=== PATIENT | male | born 1975 ===

== ENCOUNTER 2018-02-11 14:52 | Emergency (ER) | payer SELFPAY ==
[2018-02-11 15:06] VITALS: RESP 18
--- NOTE | 2018-02-11 15:17 | C.PDOC ---
History Of Present Illness 42 year old male with PMHx of DM2 (not treated) presents with L knee redness, pain, and swelling that has been worsening for the past 4 days. Reports swelling worsened to include the entire lower leg 3 days ago. Also complains of fever and shaking chills. Has been treating fevers with tylenol. States he noticed a pimple to inferior knee approximately 4 days ago. Denies trauma, shortness of breath, chest pain, cough, abdominal pain, nausea, vomiting, lightheadedness, dizziness. PMHx: DM2, L eye vision loss PSHx: L eye surgery Meds: States he took pills for DM 11 years ago, but never followed up for refill. Allergies: NKDA Social: occasional alcohol, denies smoking and drugs Family Hx: Uncle with DM PMD: none <Briana Terrell - Last Filed: 02/11/18 22:06> <Briana Russell J - Last Filed: 02/11/18 17:38> <Briana Terrell P - Last Filed: 02/11/18 22:06> Time Seen by Provider: 02/11/18 15:14 Chief Complaint (Nursing): Lower Extremity Problem/Injury Past Medical History Vital Signs: Last Vital Signs Temp 99.6 F 02/11/18 15:03 Pulse 72 02/11/18 15:03 Resp 18 02/11/18 15:03 BP 133/83 02/11/18 15:03 Pulse Ox 100 02/11/18 15:03 - Social History Hx Alcohol Use: Yes Hx Substance Use: No - Immunization History Hx Tetanus Toxoid Vaccination: No Hx Influenza Vaccination: No Hx Pneumococcal Vaccination: Yes <Briana Russell J - Last Filed: 02/11/18 17:38> Vital Signs: Last Vital Signs Temp 99.6 F 02/11/18 15:03 Pulse 72 02/11/18 15:03 Resp 18 02/11/18 15:03 BP 133/83 02/11/18 15:03 Pulse Ox 100 02/11/18 15:24 - Medical History PMH: Diabetes Other Surgeries: L eye surgery Family History: States: Diabetes - Social History Hx Tobacco Use: No <Briana Terrell - Last Filed: 02/11/18 22:06> Review Of Systems Constitutional: Positive for: Fever, Chills. Negative for: Sweats Cardiovascular: Negative for: Chest Pain, Palpitations Respiratory: Negative for: Cough, Shortness of Breath Gastrointestinal: Negative for: Nausea, Vomiting, Abdominal Pain Genitourinary: Negative for: Dysuria, Frequency Neurological: Negative for: Weakness, Numbness, Dizziness <Briana Terrell P - Last Filed: 02/11/18 22:06> Physical Exam - Physical Exam Appears: Non-toxic, No Acute Distress Skin: Other (erythema, warmth to L knee; non-pitting edema extending from L knee to foot. Otherwise normal) Head: Atraumatic, Normacephalic Eye(s): bilateral: Normal Inspection, EOMI Nose: Normal Neck: Normal, Normal ROM Cardiovascular: Rhythm Regular, No Rhythm Irregular, No Friction Rub, No Murmur, No JVD Respiratory: Normal Breath Sounds, No Decreased Breath Sounds, No Rales, No Rhonchi, No Wheezing Gastrointestinal/Abdominal: Bowel Sounds, Soft, No Tenderness, Other (No inguinal lymphadenopathy or tenderness) Extremity: Normal ROM, No Tenderness, No Calf Tenderness, Capillary Refill (less than 2 seconds), Other (erythema, warmth, and non-pitting edema to L patella, with some spread medially. Edema extends to L foot. Capillary refill intact. Pedal pulses equal bilaterally.) Pulses: Left Dorsalis Pedis: Normal, Right Dorsalis Pedis: Normal Neurological/Psych: Oriented x3, Normal Cranial Nerves, Normal Motor <Briana Terrell P - Last Filed: 02/11/18 22:06> ED Course And Treatment - Laboratory Results Result Diagrams: 02/11/18 16:07 02/11/18 16:07 O2 Sat by Pulse Oximetry: 100 <Briana Russell J - Last Filed: 02/11/18 17:38> - Laboratory Results Result Diagrams: 02/11/18 16:07 02/11/18 16:07 <Briana Terrell P - Last Filed: 02/11/18 22:06> Medical Decision Making Medical Decision Making: Plan: CBC: no white count, Hgb: 11.9 CMP: g Lactic acid: 1.0 CRP: 50.8 ESR: 70 Blood cx XRay L knee: prepatellar soft tissue swelling (see full report) Carmine Em Repeat temp: 98.2 <Briana Terrell P - Last Filed: 02/11/18 22:06> Disposition <Briana Russell J - Last Filed: 02/11/18 17:38> - Disposition Disposition Time: 17:40 <Briana Terrell P - Last Filed: 02/11/18 22:06> - Disposition Disposition: HOME/ ROUTINE Condition: STABLE Additional Instructions: You are stable for discharge as per Dr. Russell. You are being discharged with antibiotic medications, which you must take for 14 days. You are to follow up with the [facility] within 48 hours of discharge. It is located at [address] [place] [address]. Call [phone] to make an appointment. If you cannot make it to the clinic within 48 hours, you must come back to the emergency room to have your cellulitis checked. Usted est estable para el yolanda segn Dr. Lopez. Se le est dando de yolanda con receta para antibiticos, que debe amelia darnell 14 proctor. Debe realizar un seguimiento en la clnica [facility] dentro de 48 horas. Se encuentra ubicado en [address] [place] [address]. Llame al [phone] para hacer carter randi. Si no puede llegar a la clnica dentro de las 48 horas, debe regresar a la bart de emergencias para que le revisen la celulitis Prescriptions: Amoxicillin/Clavulanate [Augmentin 875 MG-125 MG] 1 tab PO BID #14 tab Ibuprofen [Motrin Tab] 600 mg PO Q8 PRN #30 tab PRN Reason: Pain, Moderate (4-7) Sulfamethoxazole/Trimethoprim [Bactrim DS 800 mg-160 mg] 1 tab PO BID #14 tab Instructions: Cellulitis (Skin Infection), Adult (DC) Forms: [employer] (Romanian) Print Language: BELARUSIAN - Clinical Impression Clinical Impression: Cellulitis
[2018-02-11] MEDS ORDERED: Piperacillin/Tazobact 3.375 gm 100 ML IV STA (15:54)
[2018-02-11] MEDS ORDERED: Vancomycin 1 GM 1 GM/250 ML BAG IV SCH (16:00)
[2018-02-11 16:12] LABS: BASO % 0.5 % (0.0-2.0); EOS # 0.1 K/uL (0.0-0.7); EOS % 1.1 % (0.0-4.0); HEMOGLOBIN 11.9 g/dL (12.0-18.0); LYMPH # 1.8 K/uL (1.0-4.3); LYMPH % 17.2 % (20.0-40.0); MEAN CELL VOLUME 84.7 fL (80.0-94.0); MEAN CORPUSCULAR HEMOGLOBIN 29.1 pg (27.0-31.0); MEAN CORPUSCULAR HGB CONC 34.4 g/dL (33.0-37.0); MEAN PLATELET VOLUME 9.9 fL (7.2-11.7); MONO # 0.7 K/uL (0.0-0.8); MONO % 6.7 % (0.0-10.0); NEUT # 7.9 K/uL (1.8-7.0); NEUT % 74.5 % (50.0-75.0); NRBC % 0.2 % (0.0-2.0); RBC 4.09 Mil/uL (4.40-5.90); RED CELL DISTRIBUTION WIDTH 12.7 % (11.5-14.5); WHITE BLOOD COUNT 10.6 K/uL (4.8-10.8)
[2018-02-11] MEDS ORDERED: Piperacillin/Tazobact 3.375 gm 100 ML IVPB ONE (16:23)
[2018-02-11 16:24] LABS: ALB/GLOB RATIO 1.1 (1.0-2.1); ALT/SGPT 25 U/L (21-72); AST/SGOT 10 U/L (17-59); BLOOD UREA NITROGEN 12 mg/dL (9-20); CALCIUM 9.3 mg/dl (8.6-10.4); GFR NON-AFRICAN AMERICAN > 60
[2018-02-11] MEDS ORDERED: Vancomycin 1 gm/NS 200 ml 1 GM/200 ML BAG IVPB STA (16:28)
[2018-02-11] MEDS ORDERED: Sodium Chloride 0.9% 1,000 ML IV ONE (16:28)
--- NOTE | 2018-02-11 17:06 | RAD ---
Date of service: 02/11/2018 PROCEDURE: Left Knee Radiographs. HISTORY: Pain. COMPARISON: None. FINDINGS: BONES: No acute fracture. JOINTS: Unremarkable. JOINT EFFUSION: None. OTHER FINDINGS: Prepatellar soft tissue swelling. IMPRESSION: No demonstrated fracture or dislocation. Prepatellar soft tissue swelling.
[2018-02-11] MEDS ORDERED: Sodium Chloride 0.9% 1,000 ML ONE (17:15)
[2018-02-11 18:52] VITALS: BP 119/77; PULSE 77; TEMP 98.4; O2SAT 99
== END 2018-02-11 18:51 | disposition home or self-care (01) ==
LOC: C.ER 14:52
DX: L03.116 Cellulitis of left lower limb (principal); E11.9 Type 2 diabetes mellitus without complications; Z83.3 Family history of diabetes mellitus
CPT/HCPCS: 73562; 80053; 82948; 83605; 85025; 85651; 86140; 87040; 96365; 96366; 96367; 99284; J2543; J3370; J7030

== ENCOUNTER 2018-02-15 14:49 | Emergency (ER) | payer OTHER ==
[2018-02-15 14:58] VITALS: PULSE 83; RESP 15; TEMP 98.6; O2SAT 100
--- NOTE | 2018-02-15 15:47 | C.PDOC ---
History Of Present Illness 42 year old male presents to ED for reevaluation of cellulitis located on left knee area. Patient prescribed Augmentin and Bactrin on 02/11 and area of erythema reduced dramatically. Patient reports edema to left lower leg, and is worse when he is upright during the day. Denies fever, chills, cough, shortness of breath, chest pain, nausea, vomiting, diarrhea, weakness, numbness. Time Seen by Provider: 02/15/18 15:31 Chief Complaint (Nursing): Lower Extremity Problem/Injury History Per: Patient History/Exam Limitations: no limitations Onset/Duration Of Symptoms: Days Current Symptoms Are (Timing): Still Present Past Medical History Reviewed: Historical Data, Nursing Documentation, Vital Signs Vital Signs: Last Vital Signs Temp 98.6 F 02/15/18 14:56 Pulse 83 02/15/18 14:56 Resp 15 02/15/18 14:56 BP 115/76 02/15/18 14:56 Pulse Ox 100 02/15/18 14:56 - Medical History PMH: Diabetes Surgical History: No Surg Hx Family History: States: Diabetes - Social History Hx Tobacco Use: No Hx Alcohol Use: Yes Hx Substance Use: No - Immunization History Hx Tetanus Toxoid Vaccination: No Hx Influenza Vaccination: No Hx Pneumococcal Vaccination: Yes Review Of Systems Except As Marked, All Systems Reviewed And Found Negative. Constitutional: Negative for: Fever, Chills Cardiovascular: Negative for: Chest Pain Respiratory: Negative for: Cough, Shortness of Breath Gastrointestinal: Negative for: Nausea, Vomiting, Diarrhea Skin: Positive for: Other (Cellulits at left knee area. Edema to left lower leg that is worse when patient is standing upright. ) Neurological: Negative for: Weakness, Numbness Physical Exam - Physical Exam Appears: Non-toxic, No Acute Distress Skin: Warm, Dry, Other (Brawny edema to surface of left knee patellar region.) Head: Atraumatic, Normacephalic Eye(s): bilateral: PERRL, EOMI Oral Mucosa: Moist Neck: Supple Chest: Symmetrical, No Deformity Cardiovascular: Rhythm Regular, No Murmur Respiratory: Normal Breath Sounds, No Rales, No Rhonchi, No Wheezing Gastrointestinal/Abdominal: Soft, No Tenderness Extremity: Normal ROM (Painless ROM of left knee with no joint effusion. ), Other (Minimal left lower lateral edema.) Neurological/Psych: Oriented x3 ED Course And Treatment O2 Sat by Pulse Oximetry: 100 (RA) Pulse Ox Interpretation: Normal Medical Decision Making Medical Decision Making: healing cellulitis of L knee area does not involve L knee joint no sig edema L lower leg- less than eval 02/11 Though started on daily FS's with meter, pt now may begin Meformin PO Disposition Doctor Will See Patient In The: Office Counseled Patient/Family Regarding: Studies Performed, Diagnosis - Disposition Referrals: [facility] [Outside] [facility] [Outside] [facility] [Outside] [facility] [Outside] [facility] [Outside] Disposition: HOME/ ROUTINE Disposition Time: 15:47 Condition: GOOD Additional Instructions: sigue los dos antibioticos nathaly dirijidos Empiesa Metformina 1000 mg dos veces al ly con comidas Sigue checkando bailey azucar ANTES del desayuno y equipment technician Apuntalos en bailey librito Brain lo a ermias siguientes visitas en la Clin[facility] con la [facility] si la herida no esta sanando correctamente Prescriptions: MetFORMIN [glucoPHAGE] 1,000 mg PO BID #60 tab Instructions: Cellulitis (Skin Infection), Adult (DC) Forms: [employer] (Citizen Of [place]) Print Language: SERBIAN - Clinical Impression Clinical Impression: Cellulitis, Visit for wound check - Scribe Statement The provider has reviewed the documentation as recorded by the Scribe Brando Reynold Provider Attestation: All medical record entries made by the Scribe were at my direction and personally dictated by me. I have reviewed the chart and agree that the record accurately reflects my personal performance of the history, physical exam, medical decision making, and the department course for this patient. I have also personally directed, reviewed, and agree with the discharge instructions and disposition.
[2018-02-15 16:01] VITALS: BP 119/79
== END 2018-02-15 16:01 | disposition home or self-care (01) ==
LOC: C.ER 14:49
DX: L03.116 Cellulitis of left lower limb (principal)

== ENCOUNTER 2018-02-18 10:52 | Emergency (ER) | payer OTHER ==
[2018-02-18 10:59] VITALS: BP 137/84; PULSE 78; RESP 18; TEMP 98.7; O2SAT 100
--- NOTE | 2018-02-18 11:09 | C.PDOC ---
History Of Present Illness 42 year old male presents to the ED for left knee wound check. Patient was seen and evaluated by myself x2 days ago. Patient is asking to return to return to work in 2 days. No other medical complaints during visit. Denies fever, nausea, vomiting, numbness, tingling, and any other associated symptoms. Time Seen by Provider: 02/18/18 11:05 Chief Complaint (Nursing): Lower Extremity Problem/Injury History Per: Patient History/Exam Limitations: no limitations Past Medical History Reviewed: Historical Data, Nursing Documentation, Vital Signs Vital Signs: Last Vital Signs Temp 98.7 F 02/18/18 10:58 Pulse 78 02/18/18 10:58 Resp 18 02/18/18 10:58 BP 137/84 02/18/18 10:58 Pulse Ox 100 02/18/18 10:58 - Medical History PMH: Diabetes Family History: States: Diabetes - Social History Hx Tobacco Use: No Hx Alcohol Use: Yes Hx Substance Use: No - Immunization History Hx Tetanus Toxoid Vaccination: No Hx Influenza Vaccination: No Hx Pneumococcal Vaccination: Yes Review Of Systems Except As Marked, All Systems Reviewed And Found Negative. Constitutional: Positive for: Other (left knee wound check.). Negative for: Fever Gastrointestinal: Negative for: Nausea, Vomiting Physical Exam - Physical Exam Appears: Well, Non-toxic, No Acute Distress Skin: Warm, Dry Head: Atraumatic, Normacephalic Eye(s): bilateral: Normal Inspection Extremity: Capillary Refill (less than 2 seconds.), No Deformity, Other (right knee: decreased swelling. dereased tenderness. ) Pulses: Left Dorsalis Pedis: Normal, Right Dorsalis Pedis: Normal Neurological/Psych: Oriented x3, Normal Speech, Normal Motor, Normal Sensation, Normal Reflexes Gait: Steady ED Course And Treatment O2 Sat by Pulse Oximetry: 100 (RA) Pulse Ox Interpretation: Normal Medical Decision Making Medical Decision Making: wound re-eval and work note darkened area of L knee is improved from skin marker boarder placed last visit 2 days ago subjectively improved no fever non tender good med compliance, 2 days left of abx. Progress/Update: decreased swelling and decreased tenderness since last visit 2x days ago. Patient stable for discharge home. Disposition Doctor Will See Patient In The: Office Counseled Patient/Family Regarding: Studies Performed, Diagnosis - Disposition Referrals: [facility] [Outside] [facility] [Outside] [facility] [Outside] [facility] [Outside] Disposition: HOME/ ROUTINE Disposition Time: 11:10 Condition: GOOD Additional Instructions: sigue los antibioticos nathaly dirijidos hasta completos Regressa trabajar en 2 brooks (el Jueves) Instructions: Wound Care Forms: [employer] (Spanish) Print Language: TAJIK - Clinical Impression Clinical Impression: Visit for wound check - Scribe Statement The provider has reviewed the documentation as recorded by the Scribe (Amada Kothari) Provider Attestation: All medical record entries made by the Scribe were at my direction and personally dictated by me. I have reviewed the chart and agree that the record accurately reflects my personal performance of the history, physical exam, medical decision making, and the department course for this patient. I have also personally directed, reviewed, and agree with the discharge instructions and disposition.
== END 2018-02-18 11:21 | disposition home or self-care (01) ==
LOC: C.ER 10:52
DX: Z51.89 Encounter for other specified aftercare (principal)